=== PATIENT | male | born 1960 | race African-American/Black ===

== ENCOUNTER 2016-10-02 02:38 | Observation (INO) | payer BC ==
[2016-10-02] MEDS ORDERED: 50% Dextrose in Water 50 ML Syringe ONE (02:45)
[2016-10-02] MEDS ORDERED: Glucagon,Human Recombinant 1 MG Vial ONE (02:48)
[2016-10-02] MEDS ORDERED: Glucagon,Human Recombinant 1 MG Vial IVPUSH ONE (02:48)
[2016-10-02] MEDS ORDERED: Sodium Chloride 0.9% 10 ML Syringe FLUSH PRN (02:52)
--- NOTE | 2016-10-02 02:58 | EDM.PDOC ---
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 aggressive treatment both by the paramedics and initially in the emergency room by our staff as above. Note that patient was transferred for with lactated Ringer's solution rather than D5 secondary to paramedics running out of D5 fluids. Previous history of brittle IDDM including recent hypoglycemic episode on 09/30 as above. Diabetic teaching during this hospitalization. Continued aggressive IV hydration with D5 1 half normal with 20 KCl with additional frequent Accu-Cheks until his sugars have stabilized. No apparent sequelae from today's severe hypoglycemia. Neuro check with vitals. Plan 24 hour observation secondary to recurrent hypoglycemia and significant CPK elevation with insulin therapy to be held for now with the the exception of low level sliding scale starting with supper today (2) IDDM (insulin dependent diabetes mellitus) SNOMED Code(s): 90363126 Code(s): E11.9 - TYPE 2 DIABETES MELLITUS WITHOUT COMPLICATIONS; Z79.4 - SENIOR CARE (CURRENT) USE OF INSULIN Status: Chronic Priority: High Current Visit: Yes Annotation/Comment:: Brittle IDDM as above. Diabetes, dictated by diabetic nephropathy and neuropathy no known diabetic retinopathy to this point (3) Anemia SNOMED Code(s): 773041081 Code(s): D64.9 - ANEMIA, UNSPECIFIED Status: Chronic Priority: Medium Current Visit: Yes Annotation/Comment:: Known previous chronic anemia of unknown etiology, although the patient does have history of mild diabetic nephropathy. Hemoccults to be conducted with additional workup for his anemia, including iron studies, celiac screen, etc. especially in light of his chronic diarrhea. No evidence of abdominal pain or acute GI bleed Qualifiers: Anemia type: unspecified type Qualified Code(s): D64.9 - Anemia, unspecified (4) Elevated CPK SNOMED Code(s): 994484000 Code(s): R74.8 - ABNORMAL LEVELS OF OTHER SERUM ENZYMES Status: Acute Priority: High Current Visit: Yes Onset Date: 10/02/16 Annotation/Comment: : Generalized arthralgias with significantly elevated CK and CK-MB elevation, however normal CK index with otherwise normal cardiac enzymes, EKG, etc. Patient has been working out heavily recently, however possibility of rhabdomyolysis of unknown etiology with aggressive IV fluids initiated in the emergency room. No true chest pain or anginal complaints (5) Elevated LFTs SNOMED Code(s): 578536599 Code(s): R79.89 - OTHER SPECIFIED ABNORMAL FINDINGS OF BLOOD CHEMISTRY Status: Acute Priority: Medium Current Visit: Yes Onset Date: 10/02/16 Annotation/Comment:: LFTs elevation possibly secondary to fatty liver with patient not compliant with his cholesterol therapy and has not taken his medications for quite some time (6) Hyperlipidemia SNOMED Code(s): 32663869 Code(s): E78.5 - HYPERLIPIDEMIA, UNSPECIFIED Status: Chronic Priority: Medium Current Visit: Yes Annotation/Comment:: Medication noncompliance as above. Lipid panel in the a.m. No initiation of statin therapy secondary to significant CK elevation as above Qualifiers: Hyperlipidemia type: unspecified Qualified Code(s): E78.5 - Hyperlipidemia , unspecified (7) Hypertension SNOMED Code(s): 90095178 Code(s): I10 - ESSENTIAL (PRIMARY) HYPERTENSION Status: Chronic Priority : Medium Current Visit: Yes Annotation/Comment:: Blood pressures were somewhat elevated in the emergency room. He has been more compliant with these medications per his 's history. Continue to observe closely during this hospitalization Qualifiers: Hypertension type: essential hypertension Qualified Code(s): I10 - Essential (primary) hypertension (8) Mixed anxiety depressive disorder SNOMED Code(s): 312332801 Code(s): F41.8 - OTHER SPECIFIED ANXIETY DISORDERS Status: Chronic Priority: Medium Current Visit: Yes Annotation/Comment:: Stable by patient and family history with previous history of alcohol abuse as above (9) Renal insufficiency SNOMED Code(s): 262959114, 167766303 Code(s): N28.9 - DISORDER OF KIDNEY AND URETER, UNSPECIFIED Status: Chronic Priority: Medium Current Visit: Yes Annotation/Comment:: Mild diabetic nephropathy and renal insufficiency. Aggressive IV fluids secondary to CABG elevation as above (10) Asymptomatic PVCs SNOMED Code(s): 15056082 Code(s): I49.3 - VENTRICULAR PREMATURE DEPOLARIZATION Status: Acute Priority: Medium Current Visit: Yes Onset Date: 10/02/16 Annotation/ Comment:: Nonsymptomatic. Continue telemetry. Cardiac workup depending on his clinical course especially in light of his multiple cardiac risk factors (11) Diabetic neuropathy SNOMED Code(s): 421730073, 267605754, 146507095 Code(s): E11.40 - TYPE 2 DIABETES MELLITUS WITH DIABETIC NEUROPATHY, UNSP Status: Chronic Priority: Medium Current Visit: Yes Annotation/Comment:: Stable by history with no current medical therapy Qualifiers: Diabetes mellitus type: type 2 Diabetes mellitus complication detail: diabetic polyneuropathy Qualified Code(s): E11.42 - Type 2 diabetes mellitus with diabetic polyneuropathy (12) Diarrhea SNOMED Code(s): 96397554 Code(s): R19.7 - DIARRHEA, UNSPECIFIED Status: Chronic Priority: Medium Current Visit: Yes Annotation/Comment:: Celiac screen as above Qualifiers: Diarrhea type: unspecified type Qualified Code(s): R19.7 - Diarrhea, unspecified (13) Head contusion SNOMED Code(s): 732528731 Code(s): S00.93XA - CONTUSION OF UNSPECIFIED PART OF HEAD, INITIAL ENCOUNTER Status: Acute Priority: Medium Current Visit: Yes Onset Date: 10/02/16 Annotation/Comment:: Mild head contusion as above with no evidence of concussion, seizures, etc. Prolactin level as a precaution. Note mildly decreased TSH Qualifiers: Encounter type: initial encounter Contusion of head detail: scalp Qualified Code(s): S00.03XA - Contusion of scalp, initial encounter - Problem List Review Problem List Initiated/Reviewed/Updated: Yes - My Orders Last 24 Hours: My Active Orders 10/02/16 02:45 Blood Glucose Check, Bedside [RC] STAT 10/02/16 02:52 Sodium Chloride 0.9% [Saline Flush] 10 ml FLUSH ASDIRECTED PRN 10/02/16 02:53 Chest 1V Frontal [CR] Stat EKG 12 Lead [EK] Stat 10/02/16 02:54 Oxygen Therapy, ED [RC] CONTINUOUS 10/02/16 02:56 Cardiac Monitoring [RC] . DIRECTED EKG Documentation Completion [RC] ASDIRECTED Peripheral IV Care [RC] . DIRECTED Pulse Oximetry [RC] CONTINUOUS Peripheral IV Insertion Adult [OM.PC] Stat 10/02/16 03:00 D5 1/2 NS w/ 20 mEq/L KCl 1,000 ml IV ASDIRECTED 10/02/16 03:01 Obtain Past Medical Record [OM.PC] Routine 10/02/16 03:09 Blood Glucose Check, Bedside [RC] STAT 10/02/16 03:10 CULTURE URINE [RM] Routine URINALYSIS W/MICROSCOPIC [UA W/MICROSCOPIC] [URIN] Routine 10/02/16 04:07 Blood Glucose Check, Bedside [RC] STAT 10/02/16 Breakfast Nothing per Oral Now Diet [DIET] - Assessment/Plan Admission H&P: Please use this note as an admission H&P Last 24 Hours: My Active Orders 10/02/16 02:45 Blood Glucose Check, Bedside [RC] STAT 10/02/16 02:52 Sodium Chloride 0.9% [Saline Flush] 10 ml FLUSH ASDIRECTED PRN 10/02/16 02:53 Chest 1V Frontal [CR] Stat EKG 12 Lead [EK] Stat 10/02/16 02:54 Oxygen Therapy, ED [RC] CONTINUOUS 10/02/16 02:56 Cardiac Monitoring [RC] . DIRECTED EKG Documentation Completion [RC] ASDIRECTED Peripheral IV Care [RC] . DIRECTED Pulse Oximetry [RC] CONTINUOUS Peripheral IV Insertion Adult [OM.PC] Stat 10/02/16 03:00 D5 1/2 NS w/ 20 mEq/L KCl 1,000 ml IV ASDIRECTED 10/02/16 03:01 Obtain Past Medical Record [OM.PC] Routine 10/02/16 03:09 Blood Glucose Check, Bedside [RC] STAT 10/02/16 03:10 CULTURE URINE [RM] Routine URINALYSIS W/MICROSCOPIC [UA W/MICROSCOPIC] [URIN] Routine 10/02/16 04:07 Blood Glucose Check, Bedside [RC] STAT 10/02/16 Breakfast Nothing per Oral Now Diet [DIET] Assessment:: As above Plan: As above. Extensive precautions were given to the patient and his , who are in agreement with the treatment plan. The patient's condition is stable enough for observation status and general supervision.
[2016-10-02] MEDS ORDERED: D5 1/2 NS w/ 20 mEq/L KCl 1,000 ML IV SCH (03:00)
[2016-10-02 03:33] LABS: CHLORIDE,CL 105 mmol/L (98-107); SODIUM,NA 139 mmol/L (136-145)
[2016-10-02] MEDS ORDERED: Loperamide 2 MG Tab PO PRN (04:40)
[2016-10-02] MEDS ORDERED: Acetaminophen 325 MG Tab PO PRN (04:49)
[2016-10-02] MEDS ORDERED: Famotidine 20 MG/2 ML SDV IVPUSH ONE (04:49)
[2016-10-02] MEDS: Ketorolac 15 MG/ML SDV IVPUSH PRN ×2 (05:27→13:02)
[2016-10-02] MEDS ORDERED: HYDROCHLOROTHIAZIDE PO SCH (08:00)
[2016-10-02] MEDS ORDERED: OLMESARTAN PO SCH (08:00)
[2016-10-02] MEDS ORDERED: Hydrochlorothiazide 25 MG Tab PO SCH (10:00)
[2016-10-02] MEDS ORDERED: Olmesartan 20 MG Tab PO SCH (10:00)
[2016-10-02] MEDS ORDERED: Insulin Regular, Human 100 Units/ML 3 ML Vial SUBCUT ONE (10:17)
[2016-10-02 11:00] VITALS: BP 146/92
--- NOTE | 2016-10-02 11:25 | PCM.SN ---
- Free Text/Narrative Note: Blood sugar 438. D5 1/2NS discontinued. Patient is feeling better. CK increased. Patient admits to starting a weightlifting regimen again this past week. Also has been doing increased amounts of yard work the past two days. Continuing to follow blood sugars and labs.
[2016-10-02] MEDS ORDERED: Insulin Aspart 100 Units/ML 3 ML Pen SUBCUT SCH ×2 (11:26→17:00)
--- NOTE | 2016-10-02 12:28 | PCM.SN ---
- Free Text/Narrative Note: Patient and patient's both in agreement that they would like evaluation by either [facility] or [facility]End[facility]. confirms that patient has very poor diet choices and eats bags of candy. He has also had issues following up with specialists in past up in the [place] area, usually saying that he does not like the specialists. [facility] on divert. [facility] accepted patient (). Given the recent severe hypoglycemia and recent dose of insulin, do not recommend transferring patient by private vehicle. Anticipate transfer by EMS.
--- NOTE | 2016-10-02 12:29 | PCM.DCSUM1 ---
Discharge Summary - Hospital Course Brief History: Admitted observation after severe hypoglycemic episode. Also has severe chronic loose stools. - Discharge Data Discharge Date: 10/02/16 Discharge Disposition: DC/Tfer to Acute Hospital 02 Condition: Good - Discharge Diagnosis/Problem(s) (1) Noncompliance with diabetes treatment SNOMED Code(s): 7373043 ICD Code: Z91.19 - PATIENT'S NONCOMPLIANCE W OTH MEDICAL TREATMENT AND REGIMEN Status: Chronic Priority: High Current Visit: Yes (2) Asymptomatic PVCs SNOMED Code(s): 93599504 ICD Code: I49.3 - VENTRICULAR PREMATURE DEPOLARIZATION Status: Acute Priority: Medium Current Visit: Yes Onset Date: 10/02/16 Problem Details: Nonsymptomatic. Continue telemetry. Cardiac workup depending on his clinical course especially in light of his multiple cardiac risk factors (3) Elevated CPK SNOMED Code(s): 679655669 ICD Code: R74.8 - ABNORMAL LEVELS OF OTHER SERUM ENZYMES Status: Acute Priority: High Current Visit: Yes Onset Date: 10/02/16 Problem Details: Generalized arthralgias with significantly elevated CK and CK-MB elevation, however normal CK index with otherwise normal cardiac enzymes, EKG, etc. Patient has been working out heavily recently, however possibility of rhabdomyolysis of unknown etiology with aggressive IV fluids initiated in the emergency room. No true chest pain or anginal complaints (4) Elevated LFTs SNOMED Code(s): 729396824 ICD Code: R79.89 - OTHER SPECIFIED ABNORMAL FINDINGS OF BLOOD CHEMISTRY Status: Acute Priority: Medium Current Visit: Yes Onset Date: 10/02/16 Problem Details: LFTs elevation possibly secondary to fatty liver with patient not compliant with his cholesterol therapy and has not taken his medications for quite some time (5) Head contusion SNOMED Code(s): 979239633 ICD Code: S00.93XA - CONTUSION OF UNSPECIFIED PART OF HEAD, INITIAL ENCOUNTER Status: Acute Priority: Medium Current Visit: Yes Onset Date: 10/02/16 Problem Details: Mild head contusion as above with no evidence of concussion, seizures, etc. Prolactin level as a precaution. Note mildly decreased TSH Qualifiers: Encounter type: initial encounter Contusion of head detail: scalp Qualified Code(s): S00.03XA - Contusion of scalp, initial encounter (6) Hypoglycemia SNOMED Code(s): 570463725 ICD Code: E16.2 - HYPOGLYCEMIA, UNSPECIFIED Status: Acute Priority: High Current Visit: Yes Onset Date: 10/02/16 Problem Details: Severe hypoglycemic episode today with aggressive treatment both by the paramedics and initially in the emergency room by our staff as above. Note that patient was transferred for with lactated Ringer's solution rather than D5 secondary to paramedics running out of D5 fluids. Previous history of brittle IDDM including recent hypoglycemic episode on 09/30 as above. Diabetic teaching during this hospitalization. Continued aggressive IV hydration with D5 1 half normal with 20 KCl with additional frequent Accu-Cheks until his sugars have stabilized. No apparent sequelae from today's severe hypoglycemia. Neuro check with vitals. Plan 24 hour observation secondary to recurrent hypoglycemia and significant CPK elevation with insulin therapy to be held for now with the the exception of low level sliding scale starting with supper today (7) Anemia SNOMED Code(s): 336961430 ICD Code: D64.9 - ANEMIA, UNSPECIFIED Status: Chronic Priority: Medium Current Visit: Yes Problem Details: Known previous chronic anemia of unknown etiology, although the patient does have history of mild diabetic nephropathy. Hemoccults to be conducted with additional workup for his anemia, including iron studies, celiac screen, etc. especially in light of his chronic diarrhea. No evidence of abdominal pain or acute GI bleed Qualifiers: Anemia type: unspecified type Qualified Code(s): D64.9 - Anemia, unspecified (8) Diabetic neuropathy SNOMED Code(s): 342784828, 388382344, 116867309 ICD Code: E11.40 - TYPE 2 DIABETES MELLITUS WITH DIABETIC NEUROPATHY, UNSP Status: Chronic Priority: Medium Current Visit: Yes Problem Details: Stable by history with no current medical therapy Qualifiers: Diabetes mellitus type: type 2 Diabetes mellitus complication detail: diabetic polyneuropathy Qualified Code(s): E11.42 - Type 2 diabetes mellitus with diabetic polyneuropathy (9) Diarrhea SNOMED Code(s): 63774117 ICD Code: R19.7 - DIARRHEA, UNSPECIFIED Status: Chronic Priority: Medium Current Visit: Yes Problem Details: Celiac screen as above Qualifiers: Diarrhea type: unspecified type Qualified Code(s): R19.7 - Diarrhea, unspecified (10) Hyperlipidemia SNOMED Code(s): 63247390 ICD Code: E78.5 - HYPERLIPIDEMIA, UNSPECIFIED Status: Chronic Priority: Medium Current Visit: Yes Problem Details: Medication noncompliance as above. Lipid panel in the a.m. No initiation of statin therapy secondary to significant CK elevation as above Qualifiers: Hyperlipidemia type: unspecified Qualified Code(s): E78.5 - Hyperlipidemia , unspecified (11) Hypertension SNOMED Code(s): 60585983 ICD Code: I10 - ESSENTIAL (PRIMARY) HYPERTENSION Status: Chronic Priority : Medium Current Visit: Yes Problem Details: Blood pressures were somewhat elevated in the emergency room. He has been more compliant with these medications per his 's history. Continue to observe closely during this hospitalization Qualifiers: Hypertension type: essential hypertension Qualified Code(s): I10 - Essential (primary) hypertension (12) IDDM (insulin dependent diabetes mellitus) SNOMED Code(s): 88288602 ICD Code: E11.9 - TYPE 2 DIABETES MELLITUS WITHOUT COMPLICATIONS; Z79.4 - [employer]IM[employer] (CURRENT) USE OF INSULIN Status: Chronic Priority: High Current Visit: Yes Problem Details: Brittle IDDM as above. Diabetes, dictated by diabetic nephropathy and neuropathy no known diabetic retinopathy to this point (13) Mixed anxiety depressive disorder SNOMED Code(s): 775384860 ICD Code: F41.8 - OTHER SPECIFIED ANXIETY DISORDERS Status: Chronic Priority: Medium Current Visit: Yes Problem Details: Stable by patient and family history with previous history of alcohol abuse as above (14) Renal insufficiency SNOMED Code(s): 494558661, 581816051 ICD Code: N28.9 - DISORDER OF KIDNEY AND URETER, UNSPECIFIED Status: Chronic Priority: Medium Current Visit: Yes Problem Details: Mild diabetic nephropathy and renal insufficiency. Aggressive IV fluids secondary to CABG elevation as above - Patient Summary/Data Complications: none Hospital Course: Blood sugars responded to therapy. Vital signs stable. Mental status improved. CK continued to elevate. Noted to have large number of foul smelling loose stools. Guiac negative in ER. and patient both interested in referral to [place] for continued evaluation and treatment of blood sugars as well as GI issues. Given severity of hypoglycemia as well as observed significant bowel movements it was felt appropriate to consider for transfer. Dr. Willson accepted patient to be transferred to [place]. - Discharge Plan Home Medications: Home Meds Ibuprofen 600 mg PO Q6HR PRN 05/08/16 [History] Insulin Aspart [NovoLOG] 5 units SUBCUT TIDMEALS 05/08/16 [History] Insulin Glarg,Human.Rec.Analog [LantUS Solostar] 30 units SUBCUT BEDTIME [History] Olmesartan/Hydrochlorothiazide [Benicar HCT 40-25 MG] 0.5 tab PO DAILY 05/08/16 [History] Cyclobenzaprine [Flexeril] 5 mg PO TID PRN 10/02/16 [History] Loperamide [Imodium AD] 2 mg PO Q6H PRN 10/02/16 [History] Rosuvastatin [Crestor] 10 mg PO BEDTIME 10/02/16 [History] Tadalafil [Cialis] 5 mg PO DAILY PRN 10/02/16 [History] Forms: ED Department Discharge Referrals: Serenity Partida PA [Primary Care Provider] - - Discharge Summary/Plan Comment DC Time >30 min.: No Discharge Summary/Plan Comment: Transfer to [place] for further evaluation/care by Internal Medicine/GI/ Endocrine. - General Info Date of Service: 10/02/16 Admission Dx/Problem (Free Text: Hypoglycemia/loose stools. Functional Status: Reports: pain controlled, tolerating diet, ambulating, urinating. Denies: new symptoms - Review of Systems General: Reports: No Symptoms HEENT: Reports: no symptoms Pulmonary: Reports: no symptoms Cardiovascular: Reports: No Symptoms Gastrointestinal: Reports: Diarrhea. Denies: Hematochezia, Melena, Nausea, Vomiting Genitourinary: Reports: no symptoms Musculoskeletal: Reports: no symptoms Skin: Reports: no symptoms Neurological: Reports: Pre-Existing Deficit (Has peripheral neuropathy) Psychiatric: Reports: no symptoms - Patient Data Vitals - Most Recent: Last Vital Signs Temp 37.0 C 10/02/16 10:59 Pulse 88 10/02/16 10:59 Resp 20 10/02/16 10:59 BP 146/92 H 10/02/16 10:59 Pulse Ox 100 10/02/16 10:59 Weight - Most Recent: 90.129 kg I&O - Last 24 hours: Intake & Output 10/01/16 10/02/16 10/02/16 22:59 06:59 14:59 Intake Total 250 Output Total 200 Balance 50 Lab Results - Last 24 hrs: Laboratory Results - last 24 hr 10/02/16 10/02/16 10/02/16 Range/Units 06:15 06:15 06:27 Glucose (74-106) mg/dL POC Glucose 192 H (65-110) mg/dl Iron (50-175) ug/dL TIBC (250-450) ug/dL % Saturation Ferritin (8-388) ng/mL Creatine Kinase (26-308) U/L Creatine Kinase Index (0.0-2.5) % CK-MB (CK-2) (0.00-3.60) ng/mL Troponin I (0.000-0.056) ng/mL Vitamin B12 (193-986) pg/mL Folate (8.6-58.9) ng/mL Free T4 (0.76-1.46) ng/dL Specimen Type Urincc Urine Color Yellow Urine Appearance Clear Urine pH 5.5 (5.0-9.0) Ur Specific [place] 1.025 (1.005-1.030) Urine Protein 100 H (NEGATIVE) mg/dL Urine Glucose (UA) 100 H (NEGATIVE) mg/dL Urine Ketones Negative (NEGATIVE) mg/dL Urine Occult Blood Large H (NEGATIVE) Urine Nitrite Negative (NEGATIVE) Urine Bilirubin Negative (NEGATIVE) Urine Urobilinogen 0.2 (0.2-1.0) E.U./dL Ur Leukocyte Esterase Negative (NEGATIVE) Urine RBC 0-5 /HPF Urine WBC 0-5 /HPF Ur Epithelial Cells Occasional /LPF Urine Bacteria Occasional (NONE TO FEW) /HPF Ur Random Microalbumin 0 (NEGATIVE) mg/L 10/02/16 10/02/16 10/02/16 Range/Units 08:04 09:30 09:30 Glucose (74-106) mg/dL POC Glucose 348 H* (65-110) mg/dl Iron 34 L (50-175) ug/dL TIBC 254 (250-450) ug/dL % Saturation 13.22549 Ferritin 186 (8-388) ng/mL Creatine Kinase (26-308) U/L Creatine Kinase Index (0.0-2.5) % CK-MB (CK-2) (0.00-3.60) ng/mL Troponin I 0.027 (0.000-0.056) ng/mL Vitamin B12 921 (193-986) pg/mL Folate (8.6-58.9) ng/mL Free T4 1.00 (0.76-1.46) ng/dL Specimen Type Urine Color Urine Appearance Urine pH (5.0-9.0) Ur Specific Chelsea (1.005-1.030) Urine Protein (NEGATIVE) mg/dL Urine Glucose (UA) (NEGATIVE) mg/dL Urine Ketones (NEGATIVE) mg/dL Urine Occult Blood (NEGATIVE) Urine Nitrite (NEGATIVE) Urine Bilirubin (NEGATIVE) Urine Urobilinogen (0.2-1.0) E.U./dL Ur Leukocyte Esterase (NEGATIVE) Urine RBC /HPF Urine WBC /HPF Ur Epithelial Cells /LPF Urine Bacteria (NONE TO FEW) /HPF Ur Random Microalbumin (NEGATIVE) mg/L 10/02/16 10/02/16 Range/Units 09:30 11:12 Glucose 438 H* (74-106) mg/dL POC Glucose 321 H* (65-110) mg/dl Iron (50-175) ug/dL TIBC (250-450) ug/dL % Saturation Ferritin (8-388) ng/mL Creatine Kinase 1872 H (26-308) U/L Creatine Kinase Index 0.7 (0.0-2.5) % CK-MB (CK-2) 13.80 H* (0.00-3.60) ng/mL Troponin I (0.000-0.056) ng/mL Vitamin B12 (193-986) pg/mL Folate 18.5 (8.6-58.9) ng/mL Free T4 (0.76-1.46) ng/dL Specimen Type Urine Color Urine Appearance Urine pH (5.0-9.0) Ur Specific Chelsea (1.005-1.030) Urine Protein (NEGATIVE) mg/dL Urine Glucose (UA) (NEGATIVE) mg/dL Urine Ketones (NEGATIVE) mg/dL Urine Occult Blood (NEGATIVE) Urine Nitrite (NEGATIVE) Urine Bilirubin (NEGATIVE) Urine Urobilinogen (0.2-1.0) E.U./dL Ur Leukocyte Esterase (NEGATIVE) Urine RBC /HPF Urine WBC /HPF Ur Epithelial Cells /LPF Urine Bacteria (NONE TO FEW) /HPF Ur Random Microalbumin (NEGATIVE) mg/L PANCHITO Results - Last 24 hrs: Microbiology 10/02/16 06:15 Stool Occult Blood (PANCHITO) - Final Stool / Feces Med Orders - Current: Current Medications Acetaminophen (Tylenol) 650 mg PO Q4H PRN PRN Reason: Pain (Mild 1-3)/fever Hydrochlorothiazide (Hydrochlorothiazide) 12.5 mg PO DAILY [facility] Last Admin: 10/02/16 10:05 Dose: 12.5 mg Insulin Aspart (Novolog) 0 unit SUBCUT ACBED [facility] PRN Reason: Protocol Last Admin: 10/02/16 11:54 Dose: 8 units Ketorolac Tromethamine (Toradol) 15 mg IVPUSH Q6H PRN PRN Reason: Breakthrough Pain Last Admin: 10/02/16 05:27 Dose: 15 mg Loperamide HCl (Imodium Ad) 2 mg PO Q6H PRN PRN Reason: diarrhea Last Admin: 10/02/16 10:07 Dose: 2 mg Olmesartan (Benicar) 20 mg PO DAILY [facility] Last Admin: 10/02/16 10:06 Dose: 20 mg Sodium Chloride (Saline Flush) 10 ml FLUSH ASDIRECTED PRN PRN Reason: Keep Vein Open Temazepam (Restoril) 15 mg PO BEDTIME PRN PRN Reason: Insomnia Discontinued Medications Dextrose/Water (Dextrose 50% In Water) Confirm Administered Dose 50 ml .ROUTE .STK-MED ONE Stop: 10/02/16 02:46 Last Admin: 10/02/16 02:52 Dose: 50 ml Famotidine (Pepcid) 40 mg IVPUSH ONETIME ONE Stop: 10/02/16 04:50 Last Admin: 10/02/16 05:25 Dose: 40 mg Glucagon (Glucagen) 1 mg IVPUSH ONETIME ONE Stop: 10/02/16 02:49 Last Admin: 10/02/16 02:52 Dose: 1 mg Glucagon (Glucagen) Confirm Administered Dose 1 mg .ROUTE .STK-MED ONE Stop: 10/02/16 02:49 Last Admin: 10/02/16 02:53 Dose: Not Given Potassium Chloride/Dextrose/Sod Cl (D5 1/2 Ns W/ 20 Meq/L Kcl) 1,000 mls @ 150 mls/hr IV ASDIRECTED [facility] Last Admin: 10/02/16 02:58 Dose: 150 mls/hr Insulin Aspart (Novolog) 0 unit SUBCUT ACBED [facility] PRN Reason: Protocol Insulin Human Regular (Humulin R) 6 unit SUBCUT ONETIME ONE PRN Reason: Protocol Stop: 10/02/16 10:18 Last Admin: 10/02/16 10:31 Dose: 6 units - Exam General: Reports: alert, oriented, cooperative, no acute distress HEENT: Reports: Pupils equal, Pupils reactive, EOMI, Mucous membr. moist/pink Neck: Reports: supple Lungs: Reports: Clear to auscultation, Normal respiratory effort Cardiovascular: Reports: Regular Rate, Regular Rhythm Abdomen: Reports: soft, no tenderness Skin: Reports: warm, dry, intact Neurological: Reports: no new focal deficit Psy/Mental Status: Reports: alert, normal affect, normal mood *Q Meaningful Use (DIS) - VTE *Q VTE Criteria *Q: - Stroke *Q Stroke Criteria *Q: - AMI *Q AMI Criteria *Q:
[2016-10-02] MEDS ORDERED: Temazepam 15 MG Cap PO PRN (20:00)
--- NOTE | 2016-10-03 09:51 | PCM.SN ---
- Free Text/Narrative Note: Patient stool for H. pylori did come back positive. His Hemoccult of stool was negative, however. Our laboratory was informed with laboratory animal caretaker to submit these test results both to [facility] in [place], where the patient was transferred to yesterday, and to his regular provider, Maria Antonia Partida PA-C, at the [facility] in [place].
== END 2016-10-02 13:05 ==
LOC: LL.ED 02:38 → UNDOADMOB 04:10 → LL.MS 04:10
PROVIDERS: ADMIT Family Medicine; ATTEND Family Medicine
DX: Z91.19 Patient's noncompliance with other medical treatment and regimen (principal); I49.3 Ventricular premature depolarization; R74.8 Abnormal levels of other serum enzymes; R79.89 Other specified abnormal findings of blood chemistry; S00.03XA Contusion of scalp, initial encounter; E16.2 Hypoglycemia, unspecified; D64.9 Anemia, unspecified; E11.42 Type 2 diabetes mellitus with diabetic polyneuropathy; R19.7 Diarrhea, unspecified; E78.5 Hyperlipidemia, unspecified; E78.00 Pure hypercholesterolemia, unspecified; I10 Essential (primary) hypertension; Z79.4 Long term (current) use of insulin; F41.8 Other specified anxiety disorders; N28.9 Disorder of kidney and ureter, unspecified; Z79.899 Other long term (current) drug therapy; Z98.890 Other specified postprocedural states; F17.210 Nicotine dependence, cigarettes, uncomplicated
CPT/HCPCS: 36415; 71010; 80053; 81001; 82009; 82044; 82272; 82550; 82553; 82607; 82728; 82746; 82947; 82962; 83036; 83516; 83540; 83550; 83605; 83735; 83880; 84146; 84439; 84443; 84466; 84481; 84484; 84550; 85025; 85610; 85730; 87086; 87338; 93005; 96361; 96374; 96375; 96376; 99282; 99285; A9270; G0378; J1610; J1815; J1885; J3480; 96365; 96366; J7060; S0028

== ENCOUNTER 2016-10-31 08:50 | Day surgery (SDC) | payer BC ==
[~2016-10-31 08:50] MED LIST: Lactated Ringers 1,000 ML IV SCH; Sodium Chloride 0.9% 10 ML Syringe FLUSH PRN
[2016-10-31] MEDS ORDERED: Propofol 200 MG/20 ML SDV ONE ×2 (09:41→09:48)
[2016-10-31] MEDS ORDERED: Midazolam 1 MG/ML 2 ML SDV ONE ×2 (09:41→09:48)
[2016-10-31] MEDS ORDERED: fentaNYL 100 MCG/2 ML SDV ONE ×2 (09:41→09:48)
--- NOTE | 2016-10-31 09:43 | PCM.HPR ---
H & P Addendum review - H & P Addendum Review Date of Original H & P: 10/14/16 Date Reviewed: 10/31/16 Time Reviewed: 09:42 Patient was Examined: No Changes
--- NOTE | 2016-10-31 10:14 | PCM.OPNOTE ---
- General Post-Op/Procedure Note Date of Surgery/Procedure: 10/31/16 Operative Procedure(s): Colonoscopy with Bx's Findings: Normal Pre Op Diagnosis: Chronic Diarrhea Post-Op Diagnosis: Same Anesthesia Technique: MAC Primary Surgeon: Forrest Ayoub Anesthesia Provider: Angi Lea Complications: None Condition: Good Free Text/Narrative:: Intake & Output 10/30/16 10/31/16 10/31/16 22:59 06:59 14:59 Intake Total 600 Balance 600
--- NOTE | 2016-10-31 13:37 | OR ---
Date of Procedure: 10/31/2016 PREOPERATIVE DIAGNOSIS: Chronic diarrhea. POSTOPERATIVE DIAGNOSIS: Normal colonoscopy. PROCEDURE: Colonoscopy with multiple biopsies. ANESTHESIA: IV sedation. PROCEDURE IN DETAIL: The patient was brought to the procedure room, where he was placed on his left side and IV sedation administered. Digital rectal exam was performed, which was normal. Colonoscope was inserted and advanced to the level of the cecum with minimal difficulty. Prep was poor and some soft stool was present throughout the entire colon. I was able to visualize the surfaces well enough to ensure that there were no areas of colitis or large polyps. Upon withdrawing the scope, I did take random biopsies from all segments of the colon and rectum as a single specimen. Air was removed and the scope withdrawn. Patient tolerated the procedure well and returned to recovery in stable condition. The patient will follow up with Cassi Verdugo next week for review of pathology report. MURTAZA ESCUDERO MD /[id number]
[2016-10-31 13:45] VITALS: BP 149/97
== END 2016-10-31 11:56 | disposition home or self-care (01) ==
LOC: LL.SDS 08:50
PROVIDERS: ATTEND Surgery
DX: K52.9 Noninfective gastroenteritis and colitis, unspecified (principal); I10 Essential (primary) hypertension; E11.9 Type 2 diabetes mellitus without complications; E78.5 Hyperlipidemia, unspecified; D64.9 Anemia, unspecified; Z79.4 Long term (current) use of insulin; Z79.899 Other long term (current) drug therapy
CPT/HCPCS: 45380; J2250; J2704; J3010; J7120

== ENCOUNTER 2017-03-20 21:32 | Emergency (ER) | payer BC ==
[2017-03-20 21:58] VITALS: BP 141/90
[2017-03-20] MEDS ORDERED: Clindamycin Phosphate 600 MG in Sodium Chloride 0.9% 100 ML IV ONE (22:21)
--- NOTE | 2017-03-20 22:29 | EDM.PDOC ---
ED HPI GENERAL MEDICAL PROBLEM - General Chief Complaint: Lower Extremity Injury/Pain Stated Complaint: right foot blister/infection Time Seen by Provider: 03/20/17 22:09 Source of Information: Reports: Patient History Limitations: Reports: No Limitations - History of Present Illness INITIAL COMMENTS - FREE TEXT/NARRATIVE: Several day history of soreness and developing blisters right great toe and second toe. IDDM. Has had foot cellulitis in past. Responded well to Clindamycin last time. Received new diabetic shoes and orthotics recently. Wore them twice to work and this issue developed. No fevers. Has pain around the two toes. No other complaints. Says sugars have been stable. - Related Data Allergies Allergy/AdvReac Type Severity Reaction Status Date / Time No Known Allergies Allergy Verified 03/20/17 21:49 Home Meds: Home Meds Ibuprofen 600 mg PO Q6HR PRN 05/08/16 [History] Insulin Aspart [NovoLOG] 5 units SUBCUT TIDMEALS 05/08/16 [History] Insulin Glarg,Human.Rec.Analog [LantUS Solostar] 14 units SUBCUT BEDTIME [History] Clindamycin Hcl [IMW: Clindamycin HCl] 300 mg PO .EVERY 6 HOURS #32 cap [Rx] amLODIPine [Norvasc] 5 mg PO DAILY 03/20/17 [History] Past Medical History HEENT History: Reports: Other (See Below) Other HEENT History: OTC reading glasses with no history of diabetic retinopathy Cardiovascular History: Reports: High Cholesterol, Hypertension Respiratory History: Reports: None Gastrointestinal History: Reports: Chronic Diarrhea Genitourinary History: Reports: Other (See Below) Other Genitourinary History: Erectile dysfunction Musculoskeletal History: Reports: Arthritis, Back Pain, Chronic, Fracture, Osteoarthritis, Other (See Below). Denies: Gout, Neck Pain, Chronic, RA, SLE Other Musculoskeletal History: Right foot stress fracture about age 21, left distal radial ulnar shaft fracture at age 12 Neurological History: Reports: None Other Neuro History: Diabetic neuropathy mostly in the feet Psychiatric History: Reports: Addiction Other Psychiatric History: Alcohol abuse, in remission Endocrine/Metabolic History: Reports: Diabetes, Type II Other Endocrine/Metabolic History: Brittle IDDM including hypoglycemic episodes Hematologic History: Reports: Anemia Immunologic History: Reports: None Oncologic (Cancer) History: Reports: None Dermatologic History: Reports: None - Infectious Disease History Infectious Disease History: Reports: None - Past Surgical History Head Surgeries/Procedures: Reports: None Other HEENT Surgeries/Procedures: wears reading glasses Musculoskeletal Surgical History: Reports: Other (See Below) Other Musculoskeletal Surgeries/Procedures:: L foot surgery d/t infection (e. coli) - Past Imaging History Past Imaging History: Reports: None. Denies: Angiography, Cardiac Echo Social & Family History - Family History HEENT: Reports: None Cardiac: Reports: Hypertension, PVD/COD, Other (See Below) Other Cardiac Family History: Mother and father with hypertension, father with peripheral vascular disease secondary to his diabetes with history of amputations Respiratory: Reports: None GI: Reports: None : Reports: Diabetic Nephropathy, Renal Disease/Insufficiency, Other (See Below ) Other Family History: Father with diabetic nephropathy OBGYN: Reports: Dysfunctional uterine bleeding, Fibroids, Other (See Below) Other OBGYN Family History: Sister with fibroids, another sister with multiple ectopic pregnancies Musculoskeletal: Reports: None Neurological: Reports: Neuropathy, Diabetic, Neuropathy, Peripheral, Other (See Below) Other Neurological Family History: Father with diabetic neuropathy Psychiatric: Reports: None Endocrine/Metabolic: Reports: Diabetes, type II, IDDM, Other (See Below) Other Endocrine/Metabolic Family History: Father and paternal grandfather with IDDM with complications as above Hematologic: Reports: None Immunologic: Reports: None Dermatologic: Reports: Eczema Other Dermatologic Family History: Sister with eczema Oncologic: Reports: Breast, Metastatic, Other (See Below) Other Oncologic Family History: Mother with fatal metastatic breast cancer at age 35 - Tobacco Use Smoking Status *Q: Current Some Day Smoker Years of Tobacco use: 20 Packs/Tins Daily: 0.2 Used Tobacco, but Quit: Yes Month Tobacco Last Used: apr Second Hand Smoke Exposure: No - Caffeine Use Caffeine Use: Reports: Coffee - Alcohol Use Days Per Week of Alcohol Use: 1 (Previous history of alcohol abuse as above with DWI at age 54) Number of Drinks Per Day: 1 (Usually wine) Total Drinks Per Week: 1 - Recreational Drug Use Recreational Drug Use: No - Living Situation & Occupation Living situation: Reports: (1996, 3 children), with Family (, one son) 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 ED EXAM, GENERAL - Physical Exam Exam: See Below Exam Limited By: No Limitations General Appearance: Alert, WD/WN, No Apparent Distress Eye Exam: Bilateral Eye: EOMI, PERRL Head: Atraumatic, Normocephalic Neck: Supple Respiratory/Chest: No Respiratory Distress Peripheral Pulses: 2+: Posterior Tibial (R) Extremities: Normal Range of Motion, No Pedal Edema, Normal Capillary Refill Neurological: Alert, Oriented, Normal Cognition Psychiatric: Normal Affect, Normal Mood Skin Exam: Other (skin breakdown noted over and around toe nail of right great toe dorsally. Blister noted forming on dorsal 2nd toe. No active drainage. Mild swelling. Forefoot/ankle intact, no swelling or increased warmth. ) Course - Vital Signs Last Recorded V/S: Last Vital Signs Temp 36.8 C 03/20/17 21:56 Pulse 95 03/20/17 21:56 Resp 18 03/20/17 21:56 BP 141/90 H 03/20/17 21:56 Pulse Ox 100 03/20/17 21:56 - Orders/Labs/Meds Orders: Active Orders 24 hr Category Date Time Status Toes Multiple Rt [CR] Stat Exams 03/20/17 21:37 Taken CULTURE WOUND [RM] Stat Lab 03/20/17 21:38 Ordered Clindamycin Phosphate [Cleocin] 600 mg Med 03/20/17 22:21 Ordered Sodium Chloride 0.9% [Normal Saline] 100 ml IV ONETIME Sodium Chloride 0.9% [Saline Flush] Med 03/20/17 22:22 Ordered 10 ml FLUSH ASDIRECTED PRN Saline Lock Insert [OM.PC] Routine Oth 03/20/17 22:22 Ordered Medication Orders Clindamycin Phosphate 600 mg/ (Sodium Chloride) 104 mls @ 200 mls/hr IV ONETIME ONE Stop: 03/20/17 22:52 Sodium Chloride (Saline Flush) 10 ml FLUSH ASDIRECTED PRN PRN Reason: Keep Vein Open Meds: Medications Generic Name Dose Route Start Last Admin Trade Name Freq PRN Reason Stop Dose Admin Clindamycin Phosphate 600 mg/ 104 mls @ 200 mls/hr 03/20/17 22:21 Sodium Chloride IV 03/20/17 22:52 ONETIME ONE Sodium Chloride 10 ml 03/20/17 22:22 Saline Flush FLUSH ASDIRECTED PRN Keep Vein Open - Radiology Interpretation Free Text/Narrative:: Xrays sent to Radiology for review to rule out any signs of early bony involvement with the infection. - Re-Assessments/Exams Free Text/Narrative Re-Assessment/Exam: 03/20/17 22:46 Patient responded well to Clindamycin last spring when he had similar infection. Will give Clinda IV dose tonight and have him switch to PO Clinda. Recommend follow up tomorrow at [facility] in afternoon so that they can see the infection and continue to follow patient throughout next week to make certain that infection responds to treatment. Numerous precautions reviewed prior to discharge. Patient had no further questions. Wound culture pending. Departure - Departure Time of Disposition: 23:15 Disposition: Home, Self-Care 01 Condition: Good Clinical Impression: Cellulitis of great toe, left, Cellulitis of second toe, left - Discharge Information Prescriptions: Clindamycin Hcl [IJD: Clindamycin HCl] 300 mg PO .EVERY 6 HOURS #40 cap Referrals: Atiya Verdugo PA [Primary Care Provider] - Forms: ED Department Discharge Additional Instructions: Avoid wearing shoes, especially close-toed shoes. Keep open to air when possible. Keep area clean. Recommend salt water/saline soaks 20 minutes 3 to 4 times a day. Follow up tomorrow afternoon at [facility] for wound check. Make appointment for another recheck on Friday. Follow up if you are having worsening symptoms, such as increased pain/redness/ swelling or fevers. Take your antibiotic every 6 hours. - My Orders Last 24 Hours: My Active Orders 03/20/17 21:37 Toes Multiple Rt [CR] Stat 03/20/17 21:38 CULTURE WOUND [RM] Stat 03/20/17 22:21 Clindamycin Phosphate [Cleocin] 600 mg Sodium Chloride 0.9% [Normal Saline] 100 ml IV ONETIME 03/20/17 22:22 Sodium Chloride 0.9% [Saline Flush] 10 ml FLUSH ASDIRECTED PRN Saline Lock Insert [OM.PC] Routine - Assessment/Plan Last 24 Hours: My Active Orders 03/20/17 21:37 Toes Multiple Rt [CR] Stat 03/20/17 21:38 CULTURE WOUND [RM] Stat 03/20/17 22:21 Clindamycin Phosphate [Cleocin] 600 mg Sodium Chloride 0.9% [Normal Saline] 100 ml IV ONETIME 03/20/17 22:22 Sodium Chloride 0.9% [Saline Flush] 10 ml FLUSH ASDIRECTED PRN Saline Lock Insert [OM.PC] Routine
[2017-03-20] MEDS: Sodium Chloride 0.9% 10 ML Syringe FLUSH PRN ×2 (22:39→22:40)
== END 2017-03-20 23:15 | disposition home or self-care (01) ==
LOC: LL.ED 21:32
DX: L03.031 Cellulitis of right toe (principal); S90.421A Blister (nonthermal), right great toe, initial encounter; I10 Essential (primary) hypertension; E11.9 Type 2 diabetes mellitus without complications; F17.210 Nicotine dependence, cigarettes, uncomplicated; Z79.4 Long term (current) use of insulin
CPT/HCPCS: 73660; 87070; 96365; 99284; J7050; S0077